=== PATIENT | male | born 1975 | race Caucasian/White ===

== ENCOUNTER 2016-12-15 14:53 | Inpatient (IN) | payer OTHER ==
[2016-12-15] MEDS ORDERED: Piperacillin/Tazobact 3.375 gm 100 ML IV STA (15:24)
[2016-12-15] MEDS ORDERED: Sodium Chloride 0.9% 500 ML IV ONE (15:25)
--- NOTE | 2016-12-15 15:36 | C.PDOC ---
History Of Present Illness 41 yr old male w/o significant PMHx presents to the ER for evaluation of left elbow pain, swelling, redness gradually developed for the past 5 days. Patient admits he has been applying warm compresses and noticed some discharge since early today. Patient denies fever, chills, known trauma or injury to Left elbow , myalgia, arthralgia, sore throat, throat tightness, chest pain, SOB, cough, wheezing, abd. pain, N/V, denies weakness, sensory or vascular deficits to left arm. Ambulate to Ed for evaluation, not in any apparent distress. Time Seen by Provider: 12/15/16 15:19 Chief Complaint (Nursing): Abnormal Skin Integrity History Per: Patient History/Exam Limitations: no limitations Onset/Duration Of Symptoms: Days (5) Past Medical History Reviewed: Historical Data, Nursing Documentation, Vital Signs Vital Signs: Last Vital Signs Temp 98.6 F 12/15/16 14:59 Pulse 95 H 12/15/16 14:59 Resp 16 12/15/16 14:59 BP 162/93 H 12/15/16 14:59 Pulse Ox 97 12/15/16 17:43 Family History: States: No Known Family Hx - Social History Hx Tobacco Use: Yes Hx Alcohol Use: Yes Hx Substance Use: No - Immunization History Hx Tetanus Toxoid Vaccination: No Hx Influenza Vaccination: No Hx Pneumococcal Vaccination: No Review Of Systems Except As Marked, All Systems Reviewed And Found Negative. Constitutional: Negative for: Fever, Chills Cardiovascular: Negative for: Chest Pain Respiratory: Negative for: Shortness of Breath Musculoskeletal: Positive for: Other ((+) Left elbow pain, swelling and redness) . Negative for: Arm Pain, Back Pain Neurological: Negative for: Weakness, Numbness Physical Exam - Physical Exam Appears: Well, Non-toxic, No Acute Distress Skin: Warm, Dry, Other (Left Elbow : Diffuse erythema, mild edema, warmth over the left olecranon with central induration. No proximal streaking, no flactulance.) Head: Atraumatic, Normacephalic Eye(s): bilateral: PERRL Nose: No Flaring, No Discharge Oral Mucosa: Moist Throat: Normal, No Erythema, No Exudate, No Drooling Neck: Supple Chest: Symmetrical, No Tenderness Cardiovascular: Rhythm Regular, No Murmur Respiratory: No Decreased Breath Sounds, No Accessory Muscle Use, No Rales, No Rhonchi, No Stridor, No Wheezing Gastrointestinal/Abdominal: Soft, No Tenderness, No Organomegaly, No Distention , No Guarding Back: No CVA Tenderness Extremity: Normal ROM (FAROM of LUE without difficulty.), Tenderness (mild tenderness left elbow olecranon ( see skin exam)), Capillary Refill (less than 2sec to Left hand), No Deformity (Left elbow), Other (no neurovascular deficist distally to left elbow.) Neurological/Psych: Oriented x3, Normal Motor, Normal Sensation, Normal Reflexes ED Course And Treatment - Laboratory Results Result Diagrams: 12/15/16 15:51 12/15/16 15:51 Lab Interpretation: Abnormal O2 Sat by Pulse Oximetry: 97 Pulse Ox Interpretation: Normal - Other Rad Left elbow X-Ray: Interpreted by Me, Viewed By Me Interpretation: no acute fx,dislocation, no evidence of osteo Progress Note: On re-eavluation, pt remained unchanged. case discussed with ED attenidng, diagnostics and imaging review, leukocytosis with left shift noted. Blood Cx- pending. Admission recommend at this time with Dx: left elbow celluliits r/o septic joint. results review and discussed with pt, agrees with plan. Case discussed with Hospitalist and admission accepted. case discussed with [id number] , per Hospitalist request , and consult arranged. 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 - Scribe Statement The provider has reviewed the documentation as recorded by the Scribe Sherry Wilson All medical record entries made by the Scribrogelio were at my direction and personally dictated by me. I have reviewed the chart and agree that the record accurately reflects my personal performance of the history, physical exam, medical decision making, and the department course for this patient. I have also personally directed, reviewed, and agree with the discharge instructions and disposition.
[2016-12-15 16:00] LABS: BASO # 0.1 K/uL (0.0-0.2); BASO % 0.8 % (0.0-2.0); EOS # 0.2 K/uL (0.0-0.7); EOS % 1.1 % (0.0-4.0); HEMATOCRIT 42.7 % (35.0-51.0); LYMPH # 1.8 K/uL (1.0-4.3); LYMPH % 11.6 % (20.0-40.0); MEAN CELL VOLUME 92.3 fL (80.0-94.0); MEAN CORPUSCULAR HEMOGLOBIN 30.4 pg (27.0-31.0); MEAN CORPUSCULAR HGB CONC 32.9 g/dL (33.0-37.0); MEAN PLATELET VOLUME 8.5 fL (7.2-11.7); MONO # 1.3 K/uL (0.0-0.8); MONO % 8.5 % (0.0-10.0); RED CELL DISTRIBUTION WIDTH 14.4 % (11.5-14.5); WHITE BLOOD COUNT 15.2 K/uL (4.8-10.8)
[2016-12-15 16:05] LABS: CHLORIDE 99 mmol/L (98-107); POTASSIUM 4.1 mmol/L (3.6-5.2); SODIUM 138 mmol/L (132-148)
[2016-12-15 16:07] LABS: BLOOD UREA NITROGEN 12 mg/dL (9-20); CARBON DIOXIDE 27 mmol/L (22-30); GFR AFRICAN-AMERICAN > 60; GLUCOSE,RANDOM 86 mg/dL (75-110)
[2016-12-15 16:08] LABS: CALCIUM 9.2 mg/dl (8.6-10.4)
[2016-12-15] MEDS ORDERED: Sodium Chloride 0.9% 1,000 ML ONE (16:23)
--- NOTE | 2016-12-15 16:43 | RAD ---
PROCEDURE: Radiographs of the left elbow. HISTORY: pain COMPARISON: No prior. FINDINGS: BONES: Normal. No fracture. JOINTS: Normal. No osteoarthritis. SOFT TISSUES: Normal. JOINT EFFUSION: None. OTHER FINDINGS: None IMPRESSION: Unremarkable radiographs of the left elbow.
[2016-12-15 17:21] LABS: RBC URINE 3 /hpf (0-3); URINE BACTERIA RARE (<OCC); URINE BILIRUBIN NEGATIVE (NEGATIVE); URINE BLOOD NEGATIVE (NEGATIVE); URINE COLOR Yellow (YELLOW); URINE GLUCOSE (UA) NORMAL (Normal); URINE KETONE TRACE mg/dL (NEGATIVE); URINE LEUKOCYTE ESTERASE NEG Leu/uL (Negative); URINE PROTEIN 1+ mg/dL (NEGATIVE); URINE UROBILINOGEN NORMAL mg/dL (0.2-1.0); WBC URINE < 1 /hpf (0-5)
--- NOTE | 2016-12-15 19:28 | CP.PCM.HP ---
<Ilene Galindo - Last Filed: 12/15/16 19:23> History of Present Illness - History of Present Illness History of Present Illness: CC - "Elbow pain" HPI - 41 year old male with no past medical history presents to the ED today complaining of L elbow pain. He states he noticed a "pimple" on his left elbow on Sunday. He denies trauma to the elbow or bug bites. He reports that on Sunday night he squeezed the "pimple" and pus came out. He states that he has pain in the elbow and it was very red and swollen down his arm but that this has improved since then. He reports having full ROM in his elbow. He stated that he took some of his mother's percocet to relived the pain and was applying hot compresses to the area. He came in today because it was not better. He denies pain in any other area of joint. He denies fever/chills or any other complaint. PMHx - denies Meds - none Allergies - NKDA Surg - denies FamHx - noncontributory Social - smokes a few cigarettes a day for many years, social alcohol use, denies drug use. Works at [employer] in [employer]. Present on Admission - Present on Admission Any Indicators Present on Admission: No Review of Systems - Constitutional Constitutional: absent: Chills, Fever, Headache, Weakness - Cardiovascular Cardiovascular: absent: Chest Pain, Chest Pain at Rest, Palpitations, Pedal Edema - Respiratory Respiratory: absent: Cough, Dyspnea, Dyspnea on Exertion - Gastrointestinal Gastrointestinal: absent: Abdominal Pain, Constipation, Diarrhea, Nausea, Vomiting - Genitourinary Genitourinary: absent: Change in Urinary Stream, Difficulty Urinating - Musculoskeletal Musculoskeletal: Joint Swelling Additional comments: L elbow pain and redness Past Patient History - Past Social History Smoking Status: SOMETIMES - PSYCHIATRIC Hx Substance Use: No - SURGICAL HISTORY Hx Orthopedic Surgery: Yes (RIGHT ANKLE) Meds Allergies/Adverse Reactions: Allergies Allergy/AdvReac Type Severity Reaction Status Date / Time shellfish derived Allergy Intermediate ITCHING Verified 12/15/16 21:00 Physical Exam - Constitutional Appears: Non-toxic, No Acute Distress - Head Exam Head Exam: ATRAUMATIC, NORMAL INSPECTION - Eye Exam Eye Exam: EOMI, PERRL Pupil Exam: NORMAL ACCOMODATION - ENT Exam ENT Exam: Mucous Membranes Moist - Respiratory Exam Respiratory Exam: Clear to Auscultation Bilateral, NORMAL BREATHING PATTERN. absent: Accessory Muscle Use, Wheezes, Respiratory Distress - Cardiovascular Exam Cardiovascular Exam: REGULAR RHYTHM, +S1, +S2 - GI/Abdominal Exam GI & Abdominal Exam: Normal Bowel Sounds, Soft. absent: Distended, Firm, Guarding, Tenderness - Extremities Exam Extremities exam: Positive for: normal inspection. Negative for: calf tenderness, pedal edema Additional comments: L elbow cellulitis erythema, swelling, warm to the touch, sensation intact, full ROM in elbow joint, joint not tender to palpation. - Back Exam Back exam: NORMAL INSPECTION. absent: CVA tenderness (L), CVA tenderness (R), paraspinal tenderness - Neurological Exam Neurological exam: Alert, CN II-XII Intact, Oriented x3 - Psychiatric Exam Psychiatric exam: Normal Affect, Normal Mood - Skin Skin Exam: Dry, Normal Color, Warm Additional comments: no rash Results - Vital Signs Recent Vital Signs: Last Vital Signs Temp 97.7 F 12/15/16 18:46 Pulse 86 12/15/16 18:46 Resp 16 12/15/16 18:46 BP 121/80 12/15/16 18:46 Pulse Ox 97 12/15/16 18:46 - Labs Result Diagrams: 12/15/16 15:51 12/15/16 15:51 Assessment & Plan - Assessment and Plan (Free Text) Assessment: Cellulitis L elbow rule out septic joint Orthopedics consulted, help appreciated - Dr. Clay - follow up recs WBC = 15.2, no bandemia Afebrile Clindamycin 300mg IVPB Q6 hours Given one dose of Zosyn/Vanc in the ED SoluMedrol 125mg IVP given in ED Toradol 30mg IVP Q6 prn pain lyme negative f/u blood culture f/u am labs, esr,crp Prophylaxis Regular diet SCDs Pepcid 20mg PO BID <John Disla - Last Filed: 12/16/16 14:44> Results - Vital Signs Recent Vital Signs: Last Vital Signs Temp 97.0 F L 12/16/16 08:52 Pulse 71 12/16/16 08:52 Resp 20 12/16/16 08:52 BP 134/76 12/16/16 08:52 Pulse Ox 98 12/16/16 08:52 - Labs Result Diagrams: 12/16/16 11:28 12/16/16 11:28 Labs: Laboratory Results - last 24 hr 12/16/16 12/16/16 11:28 11:28 WBC 20.2 H RBC 4.33 L Hgb 13.3 Hct 40.2 MCV 92.9 MCH 30.7 MCHC 33.0 RDW 14.5 Plt Count 309 MPV 8.4 Sodium 138 Potassium 4.1 Chloride 102 Carbon Dioxide 25 Anion Gap 15 BUN 19 Creatinine 0.9 Est GFR ( Amer) > 60 Est GFR (Non-Af Amer) > 60 Random Glucose 131 H Calcium 8.9 Total Bilirubin 0.5 AST 20 ALT 15 L Alkaline Phosphatase 66 Total Protein 7.2 Albumin 3.8 Globulin 3.4 Albumin/Globulin Ratio 1.1 Attending/Attestation - Attestation I have personally seen and examined this patient.: Yes I have fully participated in the care of the patient.: Yes I have reviewed all pertinent clinical information: Yes Notes (Text): 12/16/16 14:44 Patient was seen and examined at bedside with the resident Orthopedic evaluation has been requested. We will start the patient on IV antibiotics Clinically does not seem to be septic arthritis. However will obtain further imaging studies if needed. We will follow up orthopedic recommendations I discussed the plan of care with the resident and I agree with the above history and physical and assessment/plan by the resident.
[2016-12-15] MEDS: Clindamycin 300 MG in Sodium Chloride 0.9% 50 ML IVPB SCH (21:21)
[2016-12-15 23:30] VITALS: RESP 20
[2016-12-16] MEDS: Clindamycin 300 MG in Sodium Chloride 0.9% 50 ML IVPB SCH ×3 (02:15→12:57)
[2016-12-16 11:33] LABS: HEMATOCRIT 40.2 % (35.0-51.0); MEAN CELL VOLUME 92.9 fL (80.0-94.0); MEAN CORPUSCULAR HEMOGLOBIN 30.7 pg (27.0-31.0); MEAN PLATELET VOLUME 8.4 fL (7.2-11.7); RED CELL DISTRIBUTION WIDTH 14.5 % (11.5-14.5); WHITE BLOOD COUNT 20.2 K/uL (4.8-10.8)
[2016-12-16 11:52] LABS: CHLORIDE 102 mmol/L (98-107); POTASSIUM 4.1 mmol/L (3.6-5.2); SODIUM 138 mmol/L (132-148)
[2016-12-16 11:55] LABS: ALB/GLOB RATIO 1.1 (1.0-2.1); AST/SGOT 20 U/L (17-59); BILIRUBIN,TOTAL 0.5 mg/dL (0.2-1.3); BLOOD UREA NITROGEN 19 mg/dL (9-20); CARBON DIOXIDE 25 mmol/L (22-30); GFR AFRICAN-AMERICAN > 60; TOTAL PROTEIN 7.2 g/dL (6.3-8.3)
[2016-12-16 11:56] LABS: ALKALINE PHOSPHATASE 66 U/L (38-126); ALT/SGPT 15 U/L (21-72); CALCIUM 8.9 mg/dl (8.6-10.4); GLUCOSE,RANDOM 131 mg/dL (75-110)
--- NOTE | 2016-12-16 13:45 | CP.PCM.PN ---
<Reyna Llanos - Last Filed: 12/16/16 19:34> Subjective - Date & Time of Evaluation Date of Evaluation: 12/16/16 Time of Evaluation: 09:00 - Subjective Subjective: Medicine Progress Note- Dr. Disla's service: Patient seen and examined at bedside this AM. Patient admits to left elbow swelling. Denies pain in the area this AM. He has full ROM. Denies fevers, chills, nausea, vomiting. No acute events overnight. Objective - Vital Signs/Intake and Output Vital Signs (last 24 hours): Temp Pulse Resp BP Pulse Ox 97.0 F L 71 20 134/76 98 12/16/16 08:52 12/16/16 08:52 12/16/16 08:52 12/16/16 08:52 12/16/16 08:52 Intake and Output: 12/16/16 12/16/16 06:59 18:59 Intake Total 1050 Balance 1050 - Medications Medications: Current Medications Acetaminophen (Tylenol 325mg Tab) 650 mg PO Q6 PRN PRN Reason: Fever >100.4 F Famotidine (Pepcid) 20 mg PO BID [facility] Last Admin: 12/16/16 10:48 Dose: 20 mg Clindamycin Phosphate 300 mg/ (Sodium Chloride) 52 mls @ 100 mls/hr IVPB Q6H [facility] Last Admin: 12/16/16 12:57 Dose: 100 mls/hr Ketorolac Tromethamine (Toradol) 30 mg IV Q6 PRN PRN Reason: Pain, moderate (4-7) Last Admin: 12/16/16 13:19 Dose: 30 mg Pneumococcal Polyvalent Vaccine (Pneumovax 23 Vaccine) 0.5 ml IM .ONCE ONE Stop: 12/17/16 10:01 - Labs Labs: 12/16/16 11:28 12/16/16 11:28 - Constitutional Appears: No Acute Distress - Head Exam Head Exam: NORMAL INSPECTION, NORMOCEPHALIC - Eye Exam Eye Exam: EOMI, Normal appearance - ENT Exam ENT Exam: Mucous Membranes Moist - Neck Exam Neck Exam: Full ROM, Normal Inspection - Respiratory Exam Respiratory Exam: Clear to Ausculation Bilateral, NORMAL BREATHING PATTERN - Cardiovascular Exam Cardiovascular Exam: REGULAR RHYTHM, +S1, +S2 - GI/Abdominal Exam GI & Abdominal Exam: Soft. absent: Distended, Tenderness - Extremities Exam Extremities Exam: Full ROM, Normal Inspection (right arm) Additional comments: Left arm: Elbow erythematous, with lesion, non draining, non tender, swollen and fluctuance - Neurological Exam Neurological Exam: Alert, Awake, Oriented x3 - Psychiatric Exam Psychiatric exam: Normal Affect, Normal Mood - Skin Skin Exam: Normal Color, Warm Assessment and Plan - Assessment and Plan (Free Text) Assessment: Cellulitis L elbow WBC increased to 20.2 this AM. Afebrile. Rule out septic joint Orthopedics consulted, help appreciated - Dr. Clay - follow up recs SoluMedrol 125mg IVP given in ED * DC Clindamycin 300mg IVPB Q6 hours * Start Vanco 1 gm IVPB Q14H * Start Zosyn 3.375 mg IVPB Q6H * Toradol 30mg IVP Q6 prn pain lyme negative f/u blood culture f/u MRI of left elbow f/u am labs, esr,crp Prophylactic Measure Regular diet SCDs Lovenox 40 mg SC daily Pepcid 20mg PO BID <John Disla - Last Filed: 12/17/16 08:34> Objective - Vital Signs/Intake and Output Vital Signs (last 24 hours): Temp Pulse Resp BP Pulse Ox 98.1 F 75 20 105/58 L 99 12/17/16 00:00 12/17/16 00:00 12/17/16 00:00 12/17/16 00:00 12/17/16 00:00 Intake and Output: 12/17/16 12/17/16 06:59 18:59 Intake Total 1100 Balance 1100 - Medications Medications: Current Medications Acetaminophen (Tylenol 325mg Tab) 650 mg PO Q6 PRN PRN Reason: Fever >100.4 F Enoxaparin Sodium (Lovenox) 40 mg SC DAILY [facility] Famotidine (Pepcid) 20 mg PO BID [facility] Last Admin: 12/16/16 18:00 Dose: 20 mg Piperacillin Sod/Tazobactam (Sod 3.375 gm/ Sodium Chloride) 100 mls @ 200 mls/ hr IVPB Q6H [facility] Last Admin: 12/17/16 05:40 Dose: 200 mls/hr Vancomycin/Sodium Chloride (Vancocin) 1 gm in 200 mls @ 133.333 mls/hr IVPB Q24H [facility] Stop: 06/01/17 16:01 Last Admin: 12/16/16 16:50 Dose: 133.333 mls/hr Ketorolac Tromethamine (Toradol) 30 mg IV Q6 PRN PRN Reason: Pain, moderate (4-7) Last Admin: 12/16/16 21:28 Dose: 30 mg Pneumococcal Polyvalent Vaccine (Pneumovax 23 Vaccine) 0.5 ml IM .ONCE ONE Stop: 12/17/16 10:01 - Labs Labs: 12/17/16 07:13 12/17/16 07:13 Attending/Attestation - Attestation I have personally seen and examined this patient.: Yes I have fully participated in the care of the patient.: Yes I have reviewed all pertinent clinical information, including history, physical exam and plan: Yes Notes (Text): 12/17/16 08:34 Patient was seen and examined at bedside we will change the antibiotics to Zosyn and Vancomycin Follow up MRI report I reviewed the chart, labs, imaging studies, and I discussed the plan of care with the resident and I agree with above history and physical and assessment/ plan by the resident.
[2016-12-16] MEDS: Vancomycin 1 gm/NS 200 ml 1 GM/200 ML BAG IVPB SCH (16:50)
[2016-12-16] MEDS: Piperacillin/Tazobact 3.375 GM in Sodium Chloride 100 ML IVPB SCH ×2 (17:50→22:37)
--- NOTE | 2016-12-16 21:57 | CON ---
DATE: 12/16/2016 REASON FOR CONSULTATION: Left elbow pain, rule out septic joint. HISTORY OF PRESENT ILLNESS: A 41-year-old male with no past medical history who presented to the Emergency Room with the complaint of left elbow pain over the past couple of days. The patient first noticed a pimple on the back of his elbow, which he had drained some pus and caused erythema and pain over the elbow and forearm. He was seen in the Emergency Room and admitted to the medical floor for IV antibiotics. I was consulted for evaluation of the elbow. The patient has now been having antibiotics for the past 24 hours. He states his symptoms have markedly improved. He denies pain with range of motion of the elbow. He denies pain in any other joints. PHYSICAL EXAMINATION: Left elbow, there is mild swelling and erythema over the olecranon bursa. Mild tenderness to palpation and warmth. Elbow has full range of motion, painless, from 0-130 degrees flexion, full supination and pronation. No instability. The forearm is soft and compressible. Erythema is resolving. ASSESSMENT: Left elbow olecranon bursitis. PLAN: I discussed the above findings with the patient. There is a low suspicion for septic joint. The patient's main symptoms and pain is localized to the olecranon bursa. I recommend continued IV antibiotics, warm compresses and observation. The patient can follow up with me in my office for further recommendations. No surgical intervention needed at this time. Michele Morley M.D. cc: [id number] TT: 12/16/2016 21:57:10 Confirmation # [id number] Dictation # [id number] [email or web address] [email or web address]
[2016-12-17] MEDS: Piperacillin/Tazobact 3.375 GM in Sodium Chloride 100 ML IVPB SCH ×4 (05:40→22:05)
[2016-12-17 07:19] LABS: BASO # 0.1 K/uL (0.0-0.2); EOS # 0.2 K/uL (0.0-0.7); EOS % 1.4 % (0.0-4.0); HEMATOCRIT 40.9 % (35.0-51.0); LYMPH # 3.1 K/uL (1.0-4.3); MEAN CELL VOLUME 93.6 fL (80.0-94.0); MEAN CORPUSCULAR HEMOGLOBIN 30.5 pg (27.0-31.0); MEAN CORPUSCULAR HGB CONC 32.6 g/dL (33.0-37.0); MEAN PLATELET VOLUME 8.4 fL (7.2-11.7); MONO # 1.2 K/uL (0.0-0.8); MONO % 9.1 % (0.0-10.0); RED CELL DISTRIBUTION WIDTH 14.6 % (11.5-14.5); WHITE BLOOD COUNT 13.3 K/uL (4.8-10.8)
[2016-12-17 07:48] LABS: CHLORIDE 106 mmol/L (98-107)
[2016-12-17 07:49] LABS: POTASSIUM 4.1 mmol/L (3.6-5.2); SODIUM 137 mmol/L (132-148)
[2016-12-17 07:51] LABS: ALKALINE PHOSPHATASE 51 U/L (38-126); AST/SGOT 23 U/L (17-59); BILIRUBIN,TOTAL 0.4 mg/dL (0.2-1.3); BLOOD UREA NITROGEN 17 mg/dL (9-20); CARBON DIOXIDE 23 mmol/L (22-30); GFR AFRICAN-AMERICAN > 60; GLUCOSE,RANDOM 97 mg/dL (75-110); TOTAL PROTEIN 6.1 g/dL (6.3-8.3)
[2016-12-17 07:52] LABS: ALT/SGPT 25 U/L (21-72); CALCIUM 7.9 mg/dl (8.6-10.4)
[2016-12-17] MEDS: Enoxaparin 40 mg Syringe SC SCH (09:29)
--- NOTE | 2016-12-17 09:33 | CP.PCM.PN ---
Addendum entered and electronically signed by Reyna Llanos DO 12/17/16 13: 17: f/u wound culture collected today Original Note: <Reyna Llanos - Last Filed: 12/17/16 12:41> Subjective - Date & Time of Evaluation Date of Evaluation: 12/17/16 Time of Evaluation: 08:00 - Subjective Subjective: Medicine Progress Note- Dr. Disla's Service: Patient seen and examined at bedside this Am. Patient reports left elbow started draining purulent pus today. Elbow is not tender. Denies fevers, chills. No acute events overnight. Patient is ambulating with no issues. Objective - Vital Signs/Intake and Output Vital Signs (last 24 hours): Temp Pulse Resp BP Pulse Ox 97.7 F 60 20 105/67 99 12/17/16 08:00 12/17/16 08:00 12/17/16 08:00 12/17/16 08:00 12/17/16 08:00 Intake and Output: 12/17/16 12/17/16 06:59 18:59 Intake Total 1100 Balance 1100 - Medications Medications: Current Medications Acetaminophen (Tylenol 325mg Tab) 650 mg PO Q6 PRN PRN Reason: Fever >100.4 F Enoxaparin Sodium (Lovenox) 40 mg SC DAILY [facility] Last Admin: 12/17/16 09:29 Dose: 40 mg Famotidine (Pepcid) 20 mg PO BID [facility] Last Admin: 12/17/16 09:29 Dose: 20 mg Piperacillin Sod/Tazobactam (Sod 3.375 gm/ Sodium Chloride) 100 mls @ 200 mls/ hr IVPB Q6H [facility] Last Admin: 12/17/16 05:40 Dose: 200 mls/hr Vancomycin/Sodium Chloride (Vancocin) 1 gm in 200 mls @ 133.333 mls/hr IVPB Q24H [facility] Stop: 12/21/16 16:01 Last Admin: 12/16/16 16:50 Dose: 133.333 mls/hr Ketorolac Tromethamine (Toradol) 30 mg IV Q6 PRN PRN Reason: Pain, moderate (4-7) Last Admin: 12/16/16 21:28 Dose: 30 mg Pneumococcal Polyvalent Vaccine (Pneumovax 23 Vaccine) 0.5 ml IM .ONCE ONE Stop: 12/17/16 10:01 Last Admin: 12/17/16 09:30 Dose: Not Given - Labs Labs: 12/17/16 07:13 12/17/16 07:13 - Constitutional Appears: No Acute Distress - Head Exam Head Exam: NORMAL INSPECTION, NORMOCEPHALIC - Eye Exam Eye Exam: EOMI, Normal appearance - ENT Exam ENT Exam: Mucous Membranes Moist - Neck Exam Neck Exam: Full ROM, Normal Inspection - Respiratory Exam Respiratory Exam: Clear to Ausculation Bilateral, NORMAL BREATHING PATTERN - Cardiovascular Exam Cardiovascular Exam: REGULAR RHYTHM, +S1, +S2 - GI/Abdominal Exam GI & Abdominal Exam: Soft. absent: Distended, Tenderness - Extremities Exam Extremities Exam: Full ROM, Normal Inspection - Back Exam Back Exam: NORMAL INSPECTION - Neurological Exam Neurological Exam: Alert, Awake, Oriented x3 - Psychiatric Exam Psychiatric exam: Normal Affect, Normal Mood - Skin Skin Exam: Normal Color, Warm Assessment and Plan - Assessment and Plan (Free Text) Assessment: Cellulitis L elbow WBC improved to 13.3 today from 20.2 yesterday. Afebrile. Orthopedics consulted, help appreciated - Dr. Clay - no surgery at this time. Surgery consult- Dr. Naylor for I&D. Resident notified. SoluMedrol 125mg IVP given in ED * Continue Vanco 1 gm IVPB Q14H- DAY 2 * Continue Zosyn 3.375 mg IVPB Q6H- DAY 2 * Toradol 30mg IVP Q6 prn pain lyme negative f/u blood culture- negative X 24 hrs f/u MRI of left elbow-done, report pending. ESR normal. CRP elevated at 14.70 Prophylactic Measure Regular diet SCDs Lovenox 40 mg SC daily Pepcid 20mg PO BID <John Disla - Last Filed: 12/17/16 14:11> Objective - Vital Signs/Intake and Output Vital Signs (last 24 hours): Temp Pulse Resp BP Pulse Ox 97.7 F 60 20 105/67 99 12/17/16 08:00 12/17/16 08:00 12/17/16 08:00 12/17/16 08:00 12/17/16 08:00 Intake and Output: 12/17/16 12/17/16 06:59 18:59 Intake Total 1100 Balance 1100 - Medications Medications: Current Medications Acetaminophen (Tylenol 325mg Tab) 650 mg PO Q6 PRN PRN Reason: Fever >100.4 F Enoxaparin Sodium (Lovenox) 40 mg SC DAILY [facility] Last Admin: 12/17/16 09:29 Dose: 40 mg Famotidine (Pepcid) 20 mg PO BID [facility] Last Admin: 12/17/16 09:29 Dose: 20 mg Piperacillin Sod/Tazobactam (Sod 3.375 gm/ Sodium Chloride) 100 mls @ 200 mls/ hr IVPB Q6H [facility] Last Admin: 12/17/16 10:49 Dose: 200 mls/hr Vancomycin/Sodium Chloride (Vancocin) 1 gm in 200 mls @ 133.333 mls/hr IVPB Q24H [facility] Stop: 12/21/16 16:01 Last Admin: 12/16/16 16:50 Dose: 133.333 mls/hr Ketorolac Tromethamine (Toradol) 30 mg IV Q6 PRN PRN Reason: Pain, moderate (4-7) Last Admin: 12/16/16 21:28 Dose: 30 mg Lidocaine/Epinephrine (Lidocaine 1%/Epinephrine [id number] 30 Ml) 30 ml IJ ONCE ONE Stop: 12/17/16 14:07 - Labs Labs: 12/17/16 07:13 12/17/16 07:13 Attending/Attestation - Attestation I have personally seen and examined this patient.: Yes I have fully participated in the care of the patient.: Yes I have reviewed all pertinent clinical information, including history, physical exam and plan: Yes Notes (Text): 12/17/16 14:09 Patient was seen and examined at bedside. Follow up wound cultures Continue IV antibiotics [facility] I & D by surgery I reviewed the chart, labs imaging studies and medical cost consultant notes. I agree with above history and physical and assessment/plan by the resident.
[2016-12-17] MEDS ORDERED: Pneumococcal 23-Valent Vaccine IM ONE (10:00)
--- NOTE | 2016-12-17 12:15 | CP.PCM.CON ---
<Mir Suggs - Last Filed: 12/17/16 14:10> History of Present Illness - History of Present Illness History of Present Illness: SURGERY CONSULT NOTE FOR DR. NAYLOR 41M presents with left elbow abscess that began spontaneously draining pus this morning. Patient denies fevers and chills. Does not know what may have caused the abscess. He denies any pain in the elbow, states he is able to move the arm and has no problems. PMH: denies PSH: denies Social: denies tobacco, alcohol, and illicit drugs Allergies: shellfish Past Patient History - Past Medical History & Family History Past Medical History?: No - Past Social History Smoking Status: SOMETIMES - MUSCULOSKELETAL/RHEUMATOLOGICAL Hx Falls: No - PSYCHIATRIC Hx Substance Use: No - SURGICAL HISTORY Hx Orthopedic Surgery: Yes (RIGHT ANKLE) - ANESTHESIA Hx Anesthesia: Yes Hx Anesthesia Reactions: No Hx Malignant Hyperthermia: No Has any member of the family had a problem w/ anesthesia?: No Meds Allergies/Adverse Reactions: Allergies Allergy/AdvReac Type Severity Reaction Status Date / Time shellfish derived Allergy Intermediate ITCHING Verified 12/15/16 21:00 - Medications Medications: Current Medications Acetaminophen (Tylenol 325mg Tab) 650 mg PO Q6 PRN PRN Reason: Fever >100.4 F Enoxaparin Sodium (Lovenox) 40 mg SC DAILY [facility] Last Admin: 12/17/16 09:29 Dose: 40 mg Famotidine (Pepcid) 20 mg PO BID [facility] Last Admin: 12/17/16 09:29 Dose: 20 mg Piperacillin Sod/Tazobactam (Sod 3.375 gm/ Sodium Chloride) 100 mls @ 200 mls/ hr IVPB Q6H [facility] Last Admin: 12/17/16 10:49 Dose: 200 mls/hr Vancomycin/Sodium Chloride (Vancocin) 1 gm in 200 mls @ 133.333 mls/hr IVPB Q24H [facility] Stop: 12/21/16 16:01 Last Admin: 12/16/16 16:50 Dose: 133.333 mls/hr Ketorolac Tromethamine (Toradol) 30 mg IV Q6 PRN PRN Reason: Pain, moderate (4-7) Last Admin: 12/16/16 21:28 Dose: 30 mg Physical Exam - Constitutional Appears: Non-toxic, No Acute Distress - Head Exam Head Exam: ATRAUMATIC - Eye Exam Eye Exam: EOMI, PERRL - ENT Exam ENT Exam: Mucous Membranes Moist - Respiratory Exam Respiratory Exam: Clear to Auscultation Bilateral, NORMAL BREATHING PATTERN - Cardiovascular Exam Cardiovascular Exam: REGULAR RHYTHM, +S1, +S2 - GI/Abdominal Exam GI & Abdominal Exam: Soft. absent: Distended, Firm, Guarding, Rebound, Rigid, Tenderness - Extremities Exam Additional comments: left elbow abscess, draining pus, erythema, no pain on flexion and extension, Full range of motion of the left elbow - Neurological Exam Neurological exam: Alert, Oriented x3 - Psychiatric Exam Psychiatric exam: Normal Affect, Normal Mood - Skin Skin Exam: Dry, Intact, Normal Color, Warm Results - Vital Signs Recent Vital Signs: Last Vital Signs Temp 97.7 F 12/17/16 08:00 Pulse 60 12/17/16 08:00 Resp 20 12/17/16 08:00 BP 105/67 12/17/16 08:00 Pulse Ox 99 12/17/16 08:00 - Labs Result Diagrams: 12/17/16 07:13 12/17/16 07:13 Labs: Laboratory Results - last 24 hr 12/17/16 12/17/16 12/17/16 07:13 07:13 07:13 WBC 13.3 H RBC 4.37 L Hgb 13.4 Hct 40.9 MCV 93.6 MCH 30.5 MCHC 32.6 L RDW 14.6 H Plt Count 318 MPV 8.4 Neut % (Auto) 65.5 Lymph % (Auto) 23.0 [place] % (Auto) 9.1 Eos % (Auto) 1.4 Baso % (Auto) 1.0 Neut # 8.7 H Lymph # 3.1 [place] # 1.2 H Eos # 0.2 Baso # 0.1 ESR 8 Sodium 137 Potassium 4.1 Chloride 106 Carbon Dioxide 23 Anion Gap 13 BUN 17 Creatinine 0.9 Est GFR ( Amer) > 60 Est GFR (Non-Af Amer) > 60 Random Glucose 97 Calcium 7.9 L Magnesium 2.0 Total Bilirubin 0.4 AST 23 ALT 25 Alkaline Phosphatase 51 C-React Prot High Sens 14.70 H Total Protein 6.1 L Albumin 3.1 L Globulin 3.1 Albumin/Globulin Ratio 1.0 Assessment & Plan - Assessment and Plan (Free Text) Assessment: 41M with left elbow abscess, mild spontaneous drainage - I&D bedside - f/u culture - continue antibiotics - pain management Discussed with Dr. Cyndy Suggs, PGY1 <Bruno Naylor - Last Filed: 12/18/16 18:50> Meds - Medications Medications: Current Medications Acetaminophen (Tylenol 325mg Tab) 650 mg PO Q6 PRN PRN Reason: Fever >100.4 F Enoxaparin Sodium (Lovenox) 40 mg SC DAILY [facility] Last Admin: 12/18/16 11:00 Dose: 40 mg Famotidine (Pepcid) 20 mg PO BID [facility] Last Admin: 12/18/16 18:01 Dose: 20 mg Piperacillin Sod/Tazobactam (Sod 3.375 gm/ Sodium Chloride) 100 mls @ 200 mls/ hr IVPB Q6H [facility] Last Admin: 12/18/16 18:02 Dose: 200 mls/hr Vancomycin/Sodium Chloride (Vancocin) 1 gm in 200 mls @ 133.333 mls/hr IVPB Q24H [facility] Stop: 12/21/16 16:01 Last Admin: 12/18/16 18:01 Dose: 133.333 mls/hr Results - Vital Signs Recent Vital Signs: Last Vital Signs Temp 98.0 F 12/18/16 15:00 Pulse 51 L 12/18/16 15:00 Resp 20 12/18/16 15:00 BP 127/64 12/18/16 15:00 Pulse Ox 96 12/18/16 15:00 - Labs Result Diagrams: 12/18/16 06:11 12/18/16 06:11 Labs: Laboratory Results - last 24 hr 12/18/16 12/18/16 06:11 06:11 WBC 11.1 H RBC 4.53 Hgb 13.9 Hct 42.0 MCV 92.8 MCH 30.6 MCHC 33.0 RDW 14.4 Plt Count 364 MPV 8.6 Neut % (Auto) 60.7 Lymph % (Auto) 26.6 [place] % (Auto) 9.1 Eos % (Auto) 2.8 Baso % (Auto) 0.8 Neut # 6.7 Lymph # 3.0 [place] # 1.0 H Eos # 0.3 Baso # 0.1 Sodium 136 Potassium 4.2 Chloride 101 Carbon Dioxide 26 Anion Gap 13 BUN 13 Creatinine 0.9 Est GFR ( Amer) > 60 Est GFR (Non-Af Amer) > 60 Random Glucose 92 Calcium 8.3 L Magnesium 2.0 Total Bilirubin 0.4 AST 23 ALT 24 Alkaline Phosphatase 51 Total Protein 6.2 L Albumin 3.2 L Globulin 3.0 Albumin/Globulin Ratio 1.1 Attending/Attestation - Attestation I have personally seen and examined this patient.: Yes I have fully participated in the care of the patient.: Yes I have reviewed all pertinent clinical information: Yes Notes (Text): 12/18/16 18:45 Pt was seen and examined at bedside on 12/17/16 Agree with above note and assessment Pt with Left Elbow Cellulitis and abscess I & D at bedside Consent Plan d.w pt in detail. CLexisw Current mx
[2016-12-17] MEDS ORDERED: Lidocaine 2% w Epi 1:100,000 Inj IJ ONE (14:06)
[2016-12-17] MEDS: Vancomycin 1 gm/NS 200 ml 1 GM/200 ML BAG IVPB SCH (16:25)
--- NOTE | 2016-12-18 04:27 | CP.PCM.PN ---
<DonavonMp hannahic - Last Filed: 12/18/16 04:25> Subjective - Date & Time of Evaluation Date of Evaluation: 12/18/16 Time of Evaluation: 04:25 - Subjective Subjective: PGY-1 Progress Note Patient seen and examined at bedside this early AM. Patient s/p I&D at bedside last night. Pt reports elbow pain is well-controlled on pain regimen. Denies fevers, chills. No acute events overnight. Patient is tolerating diet, urinating , and moving bowels w/o issue. Objective - Vital Signs/Intake and Output Vital Signs (last 24 hours): Temp Pulse Resp BP Pulse Ox 97.3 F L 70 20 110/13 L 96 12/18/16 00:00 12/18/16 00:00 12/18/16 00:00 12/18/16 00:00 12/18/16 00:00 Intake and Output: 12/17/16 12/18/16 18:59 06:59 Intake Total 500 600 Balance 500 600 - Medications Medications: Current Medications Acetaminophen (Tylenol 325mg Tab) 650 mg PO Q6 PRN PRN Reason: Fever >100.4 F Enoxaparin Sodium (Lovenox) [address] [facility] Last Admin: 12/17/16 09:29 Dose: 40 mg Famotidine (Pepcid) [address] [facility] Last Admin: 12/17/16 17:15 Dose: 20 mg Piperacillin Sod/Tazobactam (Sod 3.375 gm/ Sodium Chloride) 100 mls @ 200 mls/ hr IVPB Q6H [facility] Last Admin: 12/17/16 22:05 Dose: 200 mls/hr Vancomycin/Sodium Chloride (Vancocin) 1 gm in 200 mls @ 133.333 mls/hr IVPB Q24H [facility] Stop: 12/21/16 16:01 Last Admin: 12/17/16 16:25 Dose: 133.333 mls/hr - Labs Labs: 12/17/16 07:13 12/17/16 07:13 - Constitutional Appears: Non-toxic, No Acute Distress - Head Exam Head Exam: ATRAUMATIC, NORMAL INSPECTION, NORMOCEPHALIC - Eye Exam Eye Exam: EOMI Pupil Exam: PERRL - ENT Exam ENT Exam: Mucous Membranes Moist - Respiratory Exam Respiratory Exam: Clear to Ausculation Bilateral, NORMAL BREATHING PATTERN - Cardiovascular Exam Cardiovascular Exam: REGULAR RHYTHM, +S1, +S2 - GI/Abdominal Exam GI & Abdominal Exam: Soft, Normal Bowel Sounds. absent: Tenderness - Extremities Exam Extremities Exam: absent: Tenderness Additional comments: bandage covering lt elbow that is freshly applied; c/d/i - Back Exam Back Exam: absent: CVA tenderness (L), CVA tenderness (R) - Neurological Exam Neurological Exam: Alert, Awake, Oriented x3 - Psychiatric Exam Psychiatric exam: Normal Affect, Normal Mood - Skin Skin Exam: Normal Color, Warm Assessment and Plan - Assessment and Plan (Free Text) Plan: Cellulitis L elbow S/p ID at bedside WBC improved yesterday to 13.3 from 20.2 yesterday. - pt remains afebrile. Orthopedics consulted, help appreciated - Dr. Clay - no surgery at this time. Surgery consult- Dr. Naylor for I&D. Resident notified. SoluMedrol 125mg IVP given in ED * Continue Vanco 1 gm IVPB Q14H- DAY 2 * Continue Zosyn 3.375 mg IVPB Q6H- DAY 2 * Toradol 30mg IVP Q6 prn pain lyme negative f/u blood culture- negative X 48 hrs f/u MRI of left elbow-done, report pending. ESR normal. CRP elevated at 14.70 Prophylactic Measure Regular diet SCDs Lovenox 40 mg SC daily Pepcid 20mg PO BID <Kofi Galvan - Last Filed: 12/18/16 12:48> Objective - Vital Signs/Intake and Output Vital Signs (last 24 hours): Temp Pulse Resp BP Pulse Ox 98.3 F 60 20 113/70 98 12/18/16 07:26 12/18/16 07:26 12/18/16 07:26 12/18/16 07:26 12/18/16 07:26 Intake and Output: 12/18/16 12/18/16 06:59 18:59 Intake Total 1000 Balance 1000 - Medications Medications: Current Medications Acetaminophen (Tylenol 325mg Tab) 650 mg PO Q6 PRN PRN Reason: Fever >100.4 F Enoxaparin Sodium (Lovenox) [address] [facility] Last Admin: 12/18/16 11:00 Dose: 40 mg Famotidine (Pepcid) [address] [facility] Last Admin: 12/18/16 10:59 Dose: 20 mg Piperacillin Sod/Tazobactam (Sod 3.375 gm/ Sodium Chloride) 100 mls @ 200 mls/ hr IVPB Q6H [facility] Last Admin: 12/18/16 10:58 Dose: 200 mls/hr Vancomycin/Sodium Chloride (Vancocin) 1 gm in 200 mls @ 133.333 mls/hr IVPB Q24H [facility] Stop: 12/21/16 16:01 Last Admin: 12/17/16 16:25 Dose: 133.333 mls/hr - Labs Labs: 12/18/16 06:11 12/18/16 06:11 Attending/Attestation - Attestation I have personally seen and examined this patient.: Yes I have fully participated in the care of the patient.: Yes I have reviewed all pertinent clinical information, including history, physical exam and plan: Yes Notes (Text): 12/18/16 12:45 Medical Attending: Patient was seen and examined by me. Agree with the above note by the resident. Patient had a bedside I and D yesterday The patient states that overall he feels well, the swelling of the elbow has decreased, also the WBC is decreased to 11 as well. He denied fevers and chills. Currently pending cultures - there is a preliminary gram positive, also pending the MRI of the elbow to be read thank you Kofi Galvan
[2016-12-18] MEDS: Piperacillin/Tazobact 3.375 GM in Sodium Chloride 100 ML IVPB SCH ×4 (05:35→22:20)
[2016-12-18 06:29] LABS: CHLORIDE 101 mmol/L (98-107)
[2016-12-18 06:30] LABS: POTASSIUM 4.2 mmol/L (3.6-5.2); SODIUM 136 mmol/L (132-148)
[2016-12-18 06:33] LABS: ALB/GLOB RATIO 1.1 (1.0-2.1); ALKALINE PHOSPHATASE 51 U/L (38-126); ALT/SGPT 24 U/L (21-72); AST/SGOT 23 U/L (17-59); BILIRUBIN,TOTAL 0.4 mg/dL (0.2-1.3); BLOOD UREA NITROGEN 13 mg/dL (9-20); CALCIUM 8.3 mg/dl (8.6-10.4); CARBON DIOXIDE 26 mmol/L (22-30); GFR AFRICAN-AMERICAN > 60; GLUCOSE,RANDOM 92 mg/dL (75-110); TOTAL PROTEIN 6.2 g/dL (6.3-8.3)
[2016-12-18 07:01] LABS: BASO # 0.1 K/uL (0.0-0.2); BASO % 0.8 % (0.0-2.0); EOS # 0.3 K/uL (0.0-0.7); EOS % 2.8 % (0.0-4.0); LYMPH % 26.6 % (20.0-40.0); MEAN CELL VOLUME 92.8 fL (80.0-94.0); MEAN CORPUSCULAR HEMOGLOBIN 30.6 pg (27.0-31.0); MEAN PLATELET VOLUME 8.6 fL (7.2-11.7); MONO % 9.1 % (0.0-10.0); RED CELL DISTRIBUTION WIDTH 14.4 % (11.5-14.5); WHITE BLOOD COUNT 11.1 K/uL (4.8-10.8)
[2016-12-18] MEDS: Enoxaparin 40 mg Syringe SC SCH (11:00)
--- NOTE | 2016-12-18 13:28 | CP.PCM.PN ---
<Halley Apodaca - Last Filed: 12/18/16 13:31> Subjective - Date & Time of Evaluation Date of Evaluation: 12/18/16 Time of Evaluation: 07:00 - Subjective Subjective: GENERAL SURGERY PROGRESS NOTE FOR DR. NAYLOR Patient seen and examined at bedside. Dressing changed. Packing removed. Objective - Vital Signs/Intake and Output Vital Signs (last 24 hours): Temp Pulse Resp BP Pulse Ox 98.3 F 60 20 113/70 98 12/18/16 07:26 12/18/16 07:26 12/18/16 07:26 12/18/16 07:26 12/18/16 07:26 Intake and Output: 12/18/16 12/18/16 06:59 18:59 Intake Total 1000 Balance 1000 - Medications Medications: Current Medications Acetaminophen (Tylenol 325mg Tab) 650 mg PO Q6 PRN PRN Reason: Fever >100.4 F Enoxaparin Sodium (Lovenox) 40 mg SC DAILY [facility] Last Admin: 12/18/16 11:00 Dose: 40 mg Famotidine (Pepcid) 20 mg PO BID [facility] Last Admin: 12/18/16 10:59 Dose: 20 mg Piperacillin Sod/Tazobactam (Sod 3.375 gm/ Sodium Chloride) 100 mls @ 200 mls/ hr IVPB Q6H [facility] Last Admin: 12/18/16 10:58 Dose: 200 mls/hr Vancomycin/Sodium Chloride (Vancocin) 1 gm in 200 mls @ 133.333 mls/hr IVPB Q24H [facility] Stop: 12/21/16 16:01 Last Admin: 12/17/16 16:25 Dose: 133.333 mls/hr - Labs Labs: 12/18/16 06:11 12/18/16 06:11 - Constitutional Appears: Non-toxic, No Acute Distress - Head Exam Head Exam: ATRAUMATIC, NORMAL INSPECTION - Eye Exam Eye Exam: EOMI, Normal appearance - Respiratory Exam Respiratory Exam: NORMAL BREATHING PATTERN. absent: Respiratory Distress - Cardiovascular Exam Cardiovascular Exam: +S1, +S2 - Extremities Exam Additional comments: Left elbow abscess with packing in place (removed) - Neurological Exam Neurological Exam: Alert, Awake - Psychiatric Exam Psychiatric exam: Normal Affect, Normal Mood Assessment and Plan - Assessment and Plan (Free Text) Assessment: 41yo M with left elbow abscess s/p bedside I&D - Afebrile, VSS - WBC 11.1 today (decreased from 13.3 yesterday) - Wound cx: gram + cocci - Packing removed - Pt may DC home w/ PO Antibiotics (Augmentin or Clindamycin) and follow up with PMD - Discussed plan with Dr. Cyndy Apodaca PGY-2 <Bruno Naylor - Last Filed: 12/18/16 19:26> Objective - Vital Signs/Intake and Output Vital Signs (last 24 hours): Temp Pulse Resp BP Pulse Ox 98.0 F 51 L 20 127/64 96 12/18/16 15:00 12/18/16 15:00 12/18/16 15:00 12/18/16 15:00 12/18/16 15:00 - Medications Medications: Current Medications Acetaminophen (Tylenol 325mg Tab) 650 mg PO Q6 PRN PRN Reason: Fever >100.4 F Enoxaparin Sodium (Lovenox) 40 mg SC DAILY [facility] Last Admin: 12/18/16 11:00 Dose: 40 mg Famotidine (Pepcid) 20 mg PO BID [facility] Last Admin: 12/18/16 18:01 Dose: 20 mg Piperacillin Sod/Tazobactam (Sod 3.375 gm/ Sodium Chloride) 100 mls @ 200 mls/ hr IVPB Q6H [facility] Last Admin: 12/18/16 18:02 Dose: 200 mls/hr Vancomycin/Sodium Chloride (Vancocin) 1 gm in 200 mls @ 133.333 mls/hr IVPB Q24H [facility] Stop: 12/21/16 16:01 Last Admin: 12/18/16 18:01 Dose: 133.333 mls/hr - Labs Labs: 12/18/16 06:11 12/18/16 06:11 Attending/Attestation - Attestation I have personally seen and examined this patient.: Yes I have fully participated in the care of the patient.: Yes I have reviewed all pertinent clinical information, including history, physical exam and plan: Yes Notes (Text): 12/18/16 19:25 Pt was seen and examined at bedside on 12/18/16 Agree with above note and assessment
[2016-12-18] MEDS: Vancomycin 1 gm/NS 200 ml 1 GM/200 ML BAG IVPB SCH (18:01)
--- NOTE | 2016-12-18 21:03 | OP ---
PROCEDURE DATE: 12/17/2016 PREOPERATIVE DIAGNOSIS: Left elbow cellulitis and abscess. POSTOPERATIVE DIAGNOSIS: Left elbow cellulitis and abscess. PROCEDURES DONE: 1. Incision and drainage of left elbow abscess. 2. Debridement of the left elbow wound. SURGEON: Bruno Naylor MD HERBARIUM CURATOR: Melanie Suggs, [id number] . ANESTHESIA: Local anesthesia. ESTIMATED BLOOD LOSS: Around 5 mL. DRAINS: None. PATHOLOGY: Pus was sent for a culture and sensitivity. COMPLICATIONS: None. INTRAOPERATIVE FINDINGS: The patient had a 2 x 2 cm left elbow abscess which is cellulitic. INTRAOPERATIVE STEPS: This 41-year-old male who was diagnosed with a left elbow cellulitis and abscess, and the patient was consented for incision and drainage. The elbow was prepped and draped. Local anesthesia was injected and incision and drainage was done at the bedside. The wound was debrided and the wound was packed with iodoform packing and dry sterile dressing was applied. The patient tolerated the procedure well. Count of instruments and gauze was correct. There was no apparent complication. Bruno Naylor MD cc: [id number] TT: 12/18/2016 21:02:42 dn [id number]
[2016-12-19] MEDS: Piperacillin/Tazobact 3.375 GM in Sodium Chloride 100 ML IVPB SCH ×2 (04:27→11:13)
[2016-12-19 07:04] LABS: BASO # 0.1 K/uL (0.0-0.2); BASO % 0.6 % (0.0-2.0); EOS # 0.5 K/uL (0.0-0.7); EOS % 3.6 % (0.0-4.0); HEMATOCRIT 46.3 % (35.0-51.0); LYMPH % 23.3 % (20.0-40.0); MEAN CELL VOLUME 94.9 fL (80.0-94.0); MEAN CORPUSCULAR HEMOGLOBIN 31.2 pg (27.0-31.0); MEAN CORPUSCULAR HGB CONC 32.9 g/dL (33.0-37.0); MEAN PLATELET VOLUME 8.3 fL (7.2-11.7); MONO # 1.1 K/uL (0.0-0.8); MONO % 8.4 % (0.0-10.0); RED CELL DISTRIBUTION WIDTH 14.6 % (11.5-14.5); WHITE BLOOD COUNT 12.9 K/uL (4.8-10.8)
[2016-12-19 07:21] VITALS: BP 119/78; PULSE 70; TEMP 98.2; O2SAT 100
[2016-12-19 07:33] LABS: CHLORIDE 101 mmol/L (98-107); POTASSIUM 4.1 mmol/L (3.6-5.2); SODIUM 137 mmol/L (132-148)
[2016-12-19 07:35] LABS: GFR AFRICAN-AMERICAN > 60
[2016-12-19 07:36] LABS: ALB/GLOB RATIO 1.1 (1.0-2.1); ALKALINE PHOSPHATASE 65 U/L (38-126); ALT/SGPT 18 U/L (21-72); AST/SGOT 68 U/L (17-59); BILIRUBIN,TOTAL 0.5 mg/dL (0.2-1.3); BLOOD UREA NITROGEN 14 mg/dL (9-20); CALCIUM 8.6 mg/dl (8.6-10.4); CARBON DIOXIDE 24 mmol/L (22-30); GLUCOSE,RANDOM 90 mg/dL (75-110); MAGNESIUM 2.4 mg/dL (1.6-2.3); TOTAL PROTEIN 7.4 g/dL (6.3-8.3)
--- NOTE | 2016-12-19 08:38 | CP.PCM.PN ---
Subjective - Date & Time of Evaluation Date of Evaluation: 12/19/16 Time of Evaluation: 08:35 - Subjective Subjective: Surgery: Dr. Naylor Patient doing well today. He reports full range of motion in his elbow with pain. He denies f/c/n/v. Drainage from wound reported as minimal. Objective - Vital Signs/Intake and Output Vital Signs (last 24 hours): Temp Pulse Resp BP Pulse Ox 98.2 F 70 20 119/78 100 12/19/16 07:18 12/19/16 07:18 12/19/16 07:18 12/19/16 07:18 12/19/16 07:18 Intake and Output: 12/19/16 12/19/16 06:59 18:59 Intake Total 340 Balance 340 - Medications Medications: Current Medications Acetaminophen (Tylenol 325mg Tab) 650 mg PO Q6 PRN PRN Reason: Fever >100.4 F Last Admin: 12/18/16 22:24 Dose: 650 mg Enoxaparin Sodium (Lovenox) 40 mg SC DAILY [facility] Last Admin: 12/18/16 11:00 Dose: 40 mg Famotidine (Pepcid) 20 mg PO BID [facility] Last Admin: 12/18/16 18:01 Dose: 20 mg Piperacillin Sod/Tazobactam (Sod 3.375 gm/ Sodium Chloride) 100 mls @ 200 mls/ hr IVPB Q6H [facility] Last Admin: 12/19/16 04:27 Dose: 200 mls/hr Vancomycin/Sodium Chloride (Vancocin) 1 gm in 200 mls @ 133.333 mls/hr IVPB Q24H [facility] Stop: 12/21/16 16:01 Last Admin: 12/18/16 18:01 Dose: 133.333 mls/hr - Labs Labs: 12/19/16 06:46 12/19/16 06:46 - Constitutional Appears: Non-toxic, No Acute Distress - Head Exam Head Exam: ATRAUMATIC, NORMOCEPHALIC - Eye Exam Eye Exam: EOMI, Normal appearance - ENT Exam ENT Exam: Mucous Membranes Moist - Respiratory Exam Respiratory Exam: NORMAL BREATHING PATTERN. absent: Respiratory Distress - Cardiovascular Exam Cardiovascular Exam: REGULAR RHYTHM. absent: Tachycardia - Extremities Exam Additional comments: left elbow wound with minimal pus drainage, cellulitis minimal Assessment and Plan - Assessment and Plan (Free Text) Assessment: 41 y/o male s/p I&D of left elbow abscess POD2 Plan: -cont oral abx -f/u final culture -daily dressing changes -keep wound clean and dry -f/u w/ Dr. Naylor in 1-2 weeks -d/w Dr. Naylor [facility] PGY1
--- NOTE | 2016-12-19 10:09 | CP.PCM.DIS ---
Addendum entered and electronically signed by Ilene Galindo DO 12/19/16 12:30: correction: due to micro sensitivity to culture will discharge patient on Clindamycin 300mg PO TID for 3 days Original Note: <Ilene Galindo - Last Filed: 12/19/16 12:17> Provider - Provider Date of Admission: 12/15/16 17:41 Attending physician: Kiya Velasquez DO Primary care physician: none Consults: Dr. Naylor - general surgery Dr. Clay - orthopedics Time Spent in preparation of Discharge (in minutes): 35 Diagnosis - Discharge Diagnosis (1) Cellulitis Status: Acute Comment: Augmentin PO BID x 3 days. f/u [facility]. apply for [facility] Course - Lab Results Lab Results: Micro Results 12/17/16 10:25 Elbow - Left Gram Stain - Final 12/17/16 10:25 Elbow - Left Wound Culture - Preliminary Gram Positive Cocci Most Recent Lab Values WBC 12.9 K/uL (4.8-10.8) H 12/19/16 06:46 RBC 4.88 Mil/uL (4.40-5.90) 12/19/16 06:46 Hgb 15.2 g/dL (12.0-18.0) 12/19/16 06:46 Hct 46.3 % (35.0-51.0) 12/19/16 06:46 MCV 94.9 fL (80.0-94.0) H D 12/19/16 06:46 MCH 31.2 pg (27.0-31.0) H 12/19/16 06:46 MCHC 32.9 g/dL (33.0-37.0) L 12/19/16 06:46 RDW 14.6 % (11.5-14.5) H 12/19/16 06:46 Plt Count 374 K/uL (130-400) 12/19/16 06:46 MPV 8.3 fL (7.2-11.7) 12/19/16 06:46 Neut % (Auto) 64.1 % (50.0-75.0) 12/19/16 06:46 Lymph % (Auto) 23.3 % (20.0-40.0) 12/19/16 06:46 [place] % (Auto) 8.4 % (0.0-10.0) 12/19/16 06:46 Eos % (Auto) 3.6 % (0.0-4.0) 12/19/16 06:46 Baso % (Auto) 0.6 % (0.0-2.0) 12/19/16 06:46 Neut # 8.3 K/uL (1.8-7.0) H 12/19/16 06:46 Lymph # 3.0 K/uL (1.0-4.3) 12/19/16 06:46 [place] # 1.1 K/uL (0.0-0.8) H 12/19/16 06:46 Eos # 0.5 K/uL (0.0-0.7) 12/19/16 06:46 Baso # 0.1 K/uL (0.0-0.2) 12/19/16 06:46 ESR 8 mm/hr (0-15) 12/17/16 07:13 Sodium 137 mmol/L (132-148) 12/19/16 06:46 Potassium 4.1 mmol/L (3.6-5.2) 12/19/16 06:46 Chloride 101 mmol/L (98-107) 12/19/16 06:46 Carbon Dioxide 24 mmol/L (22-30) 12/19/16 06:46 Anion Gap 15 (10-20) 12/19/16 06:46 BUN 14 mg/dL (9-20) 12/19/16 06:46 Creatinine 0.9 MG/DL (0.8-1.5) 12/19/16 06:46 Est GFR ( Amer) > 60 12/19/16 06:46 Est GFR (Non-Af Amer) > 60 12/19/16 06:46 Random Glucose 90 mg/dL (75-110) 12/19/16 06:46 Calcium 8.6 mg/dl (8.6-10.4) 12/19/16 06:46 Phosphorus 4.0 mg/dL (2.5-4.5) 12/19/16 06:46 Magnesium 2.4 mg/dL (1.6-2.3) H 12/19/16 06:46 Total Bilirubin 0.5 mg/dL (0.2-1.3) 12/19/16 06:46 AST 68 U/L (17-59) H D 12/19/16 06:46 ALT 18 U/L (21-72) L D 12/19/16 06:46 Alkaline Phosphatase 65 U/L (38-126) 12/19/16 06:46 C-React Prot High Sens 14.70 mg/L (1.00-3.00) H 12/17/16 07:13 Total Protein 7.4 g/dL (6.3-8.3) 12/19/16 06:46 Albumin 4.0 g/dL (3.5-5.0) 12/19/16 06:46 Globulin 3.5 gm/dL (2.2-3.9) 12/19/16 06:46 Albumin/Globulin Ratio 1.1 (1.0-2.1) 12/19/16 06:46 Urine Color Yellow (YELLOW) 12/15/16 17:11 Urine Clarity Hazy (Clear) 12/15/16 17:11 Urine pH 5.0 (5.0-8.0) 12/15/16 17:11 Ur Specific [place] 1.033 (1.003-1.030) H 12/15/16 17:11 Urine Protein 1+ mg/dL (NEGATIVE) H 12/15/16 17:11 Urine Glucose (UA) Normal mg/dL (Normal) 12/15/16 17:11 Urine Ketones Trace mg/dL (NEGATIVE) 12/15/16 17:11 Urine Blood Negative (NEGATIVE) 12/15/16 17:11 Urine Nitrate Negative (NEGATIVE) 12/15/16 17:11 Urine Bilirubin Negative (NEGATIVE) 12/15/16 17:11 Urine Urobilinogen Normal mg/dL (0.2-1.0) 12/15/16 17:11 Ur Leukocyte Esterase Neg Compa/uL (Negative) 12/15/16 17:11 Urine WBC (Auto) < 1 /hpf (0-5) 12/15/16 17:11 Urine RBC (Auto) 3 /hpf (0-3) 12/15/16 17:11 Ur Squamous Epith Cells < 1 /hpf (0-5) 12/15/16 17:11 Urine Bacteria Rare (<OCC) 12/15/16 17:11 Lyme Disease IgM Ab Negative (NEGATIVE) 12/15/16 15:51 - Hospital Course Hospital Course: On admission: 41 year old male with no past medical history presents to the ED today complaining of L elbow pain. He states he noticed a "pimple" on his left elbow on Sunday. He denies trauma to the elbow or bug bites. He reports that on Sunday night he squeezed the "pimple" and pus came out. He states that he has pain in the elbow and it was very red and swollen down his arm but that this has improved since then. He reports having full ROM in his elbow. He stated that he took some of his mother's percocet to relived the pain and was applying hot compresses to the area. He came in today because it was not better. He denies pain in any other area of joint. He denies fever/chills or any other complaint. During hospital stay: Patient was given Clindamycin then switch to Vanc and Zosyn abx Iv. He had an elevated white count. ESR was normal CRP was elevated. Lyme was negative. Patient was afebrile during his stay. MRI was positive for developing abscess. He had an I/D done at bedside on 12/18. Packing was used then removed the next day. Cellulitis improved. Abscess culture revealed Staph Aureus. Patient stable for discharge home. Patient is to follow up in the [facility] within 1-2 weeks of discharge for post hospital care. He is also follow up with Dr. To within 1-2 weeks of discharge in the clinic for wound care follow up. He is to take Augmentin by mouth twice a day for 3 more days. Patient is to return to the ED if symptoms return. All instructions explained to the patient and he agrees. Discharge Exam - Head Exam Head Exam: ATRAUMATIC, NORMOCEPHALIC - Eye Exam Eye Exam: EOMI, Normal appearance, PERRL Pupil Exam: NORMAL ACCOMODATION - ENT Exam ENT Exam: Mucous Membranes Moist - Respiratory Exam Respiratory Exam: NORMAL BREATHING PATTERN. absent: Accessory Muscle Use, Respiratory Distress - Cardiovascular Exam Cardiovascular Exam: REGULAR RHYTHM, +S1, +S2 - GI/Abdominal Exam GI & Abdominal Exam: Normal Bowel Sounds, Soft. absent: Distended, Firm, Guarding, Tenderness - Extremities Exam Extremities exam: normal inspection Additional comments: L elbow wound, dressing c/d/i packign removed, erythema and edema resolved. FULL ROM, sensation in tact, no tenderness - Back Exam Back exam: NORMAL INSPECTION. absent: CVA tenderness (R), paraspinal tenderness - Neurological Exam Neurological exam: Alert, Normal Gait, Oriented x3 - Psychiatric Exam Psychiatric exam: Anxious, Normal Mood - Skin Skin Exam: Dry, Intact, Normal Color, Warm Discharge Plan - Discharge Medications Prescriptions: Clindamycin [Cleocin] 0 mg PO TID #9 cap - Follow Up Plan Condition: STABLE Disposition: HOME/ ROUTINE Instructions: Clindamycin (By mouth), Cellulitis (DC), Acute Wound Care (DC), Debridement (DC) Additional Instructions: Patient stable for discharge home. Patient is to follow up in the [facility] within 1-2 weeks of discharge for post hospital care. He is also follow up with Dr. To within 1-2 weeks of discharge in the clinic for wound care follow up. He is to take Clindamycin 300mg by mouth three times a day for 3 more days. Patient is to return to the ED if symptoms return. All instructions explained to the patient and he agrees. Referrals: [facility] at [facility] [Outside] Bruno Naylor MD [Staff Provider] - <Kofi Galvan H - Last Filed: 12/19/16 15:35> Provider - Provider Date of Admission: 12/15/16 17:41 Attending physician: Kiya Velasquez DO Hospital Course - Lab Results Lab Results: Micro Results 12/17/16 10:25 Elbow - Left Gram Stain - Final 12/17/16 10:25 Elbow - Left Wound Culture - Final Staphylococcus Aureus Most Recent Lab Values WBC 12.9 K/uL (4.8-10.8) H 12/19/16 06:46 RBC 4.88 Mil/uL (4.40-5.90) 12/19/16 06:46 Hgb 15.2 g/dL (12.0-18.0) 12/19/16 06:46 Hct 46.3 % (35.0-51.0) 12/19/16 06:46 MCV 94.9 fL (80.0-94.0) H D 12/19/16 06:46 MCH 31.2 pg (27.0-31.0) H 12/19/16 06:46 MCHC 32.9 g/dL (33.0-37.0) L 12/19/16 06:46 RDW 14.6 % (11.5-14.5) H 12/19/16 06:46 Plt Count 374 K/uL (130-400) 12/19/16 06:46 MPV 8.3 fL (7.2-11.7) 12/19/16 06:46 Neut % (Auto) 64.1 % (50.0-75.0) 12/19/16 06:46 Lymph % (Auto) 23.3 % (20.0-40.0) 12/19/16 06:46 [place] % (Auto) 8.4 % (0.0-10.0) 12/19/16 06:46 Eos % (Auto) 3.6 % (0.0-4.0) 12/19/16 06:46 Baso % (Auto) 0.6 % (0.0-2.0) 12/19/16 06:46 Neut # 8.3 K/uL (1.8-7.0) H 12/19/16 06:46 Lymph # 3.0 K/uL (1.0-4.3) 12/19/16 06:46 [place] # 1.1 K/uL (0.0-0.8) H 12/19/16 06:46 Eos # 0.5 K/uL (0.0-0.7) 12/19/16 06:46 Baso # 0.1 K/uL (0.0-0.2) 12/19/16 06:46 ESR 8 mm/hr (0-15) 12/17/16 07:13 Sodium 137 mmol/L (132-148) 12/19/16 06:46 Potassium 4.1 mmol/L (3.6-5.2) 12/19/16 06:46 Chloride 101 mmol/L (98-107) 12/19/16 06:46 Carbon Dioxide 24 mmol/L (22-30) 12/19/16 06:46 Anion Gap 15 (10-20) 12/19/16 06:46 BUN 14 mg/dL (9-20) 12/19/16 06:46 Creatinine 0.9 MG/DL (0.8-1.5) 12/19/16 06:46 Est GFR ( Amer) > 60 12/19/16 06:46 Est GFR (Non-Af Amer) > 60 12/19/16 06:46 Random Glucose 90 mg/dL (75-110) 12/19/16 06:46 Calcium 8.6 mg/dl (8.6-10.4) 12/19/16 06:46 Phosphorus 4.0 mg/dL (2.5-4.5) 12/19/16 06:46 Magnesium 2.4 mg/dL (1.6-2.3) H 12/19/16 06:46 Total Bilirubin 0.5 mg/dL (0.2-1.3) 12/19/16 06:46 AST 68 U/L (17-59) H D 12/19/16 06:46 ALT 18 U/L (21-72) L D 12/19/16 06:46 Alkaline Phosphatase 65 U/L (38-126) 12/19/16 06:46 C-React Prot High Sens 14.70 mg/L (1.00-3.00) H 12/17/16 07:13 Total Protein 7.4 g/dL (6.3-8.3) 12/19/16 06:46 Albumin 4.0 g/dL (3.5-5.0) 12/19/16 06:46 Globulin 3.5 gm/dL (2.2-3.9) 12/19/16 06:46 Albumin/Globulin Ratio 1.1 (1.0-2.1) 12/19/16 06:46 Urine Color Yellow (YELLOW) 12/15/16 17:11 Urine Clarity Hazy (Clear) 12/15/16 17:11 Urine pH 5.0 (5.0-8.0) 12/15/16 17:11 Ur Specific [place] 1.033 (1.003-1.030) H 12/15/16 17:11 Urine Protein 1+ mg/dL (NEGATIVE) H 12/15/16 17:11 Urine Glucose (UA) Normal mg/dL (Normal) 12/15/16 17:11 Urine Ketones Trace mg/dL (NEGATIVE) 12/15/16 17:11 Urine Blood Negative (NEGATIVE) 12/15/16 17:11 Urine Nitrate Negative (NEGATIVE) 12/15/16 17:11 Urine Bilirubin Negative (NEGATIVE) 12/15/16 17:11 Urine Urobilinogen Normal mg/dL (0.2-1.0) 12/15/16 17:11 Ur Leukocyte Esterase Neg Compa/uL (Negative) 12/15/16 17:11 Urine WBC (Auto) < 1 /hpf (0-5) 12/15/16 17:11 Urine RBC (Auto) 3 /hpf (0-3) 12/15/16 17:11 Ur Squamous Epith Cells < 1 /hpf (0-5) 12/15/16 17:11 Urine Bacteria Rare (<OCC) 12/15/16 17:11 Lyme Disease IgM Ab Negative (NEGATIVE) 12/15/16 15:51 Attending/Attestation - Attestation I have personally seen and examined this patient.: Yes I have fully participated in the care of the patient.: Yes I have reviewed all pertinent clinical information, including history, physical exam and plan: Yes Notes (Text): 12/19/16 15:35 Medical Attending: Patient was seen and examined by me. Agree with the above note by the resident. The patient was feeling much better. Will be DC today with additional days of PO abx. thank you Kofi Galvan
[2016-12-19] MEDS: Enoxaparin 40 mg Syringe SC SCH (11:13)
--- NOTE | 2016-12-19 12:13 | MRI ---
MRI left elbow History: Cellulitis. Evaluate for osteomyelitis. Comparison: None available. Technique: Multi-echo multiplanar sequences were performed through the left elbow without the use of intravenous contrast. Findings: Prominent reticulation and edema seen within the posterior and medial subcutaneous soft tissues consistent with the known cellulitis. Within the posterior soft tissues, at or near the olecranon bursa, there is a more confluent area of signal abnormality measuring 2.5 x 0.7 x 2.3 centimeters demonstrating heterogeneously decreased T1 signal, heterogeneously increased STIR signal, and heterogeneously increased T2 signal concerning for developing phlegmonous change and or developing abscess formation. Clinical correlation and or correlation with contrast-enhanced MRI may be helpful if clinically indicated. No significant signal abnormality within the adjacent osseous structures to suggest acute osteomyelitis. No significant elbow joint effusion. Biceps and brachialis tendon insertions appear preserved. Mild insertional tendinopathy of the triceps tendon on the posterior olecranon. Common extensor tendon is preserved. Mild insertional tendinopathy of the common flexor tendon. Radial collateral ligament is preserved. Lateral ulnar collateral ligament is preserved. Mild increased signal seen within the proximal attachment of the ulnar collateral ligament suggestive for a low grade sprain. Impression: 1. Prominent reticulation and edema seen within the posterior and medial subcutaneous soft tissues consistent with the known cellulitis. Within the posterior soft tissues, at or near the olecranon bursa, there is a more confluent area of signal abnormality measuring 2.5 x 0.7 x 2.3 centimeters demonstrating heterogeneously decreased T1 signal, heterogeneously increased STIR signal, and heterogeneously increased T2 signal concerning for developing phlegmonous change and or developing abscess formation. Clinical correlation and or correlation with contrast-enhanced MRI may be helpful if clinically indicated. 2. Mild insertional tendinopathy of the triceps tendon on the posterior olecranon. 3. Mild insertional tendinopathy of the common flexor tendon. 4. Mild increased signal seen within the proximal attachment of the ulnar collateral ligament suggestive for a low grade sprain. These findings were preliminarily reported at 4:41 p.m. on 12/10/[address] Beena Malin from [facility].
[2016-12-19 16:23] LABS: 18 KD (IGG) BAND Nonreactive; 23 KD (IGG) BAND Nonreactive; 23 KD (IGM) BAND Nonreactive; 28 KD (IGG) BAND Nonreactive; 30 KD (IGG) BAND Nonreactive; 39 KD (IGG) BAND Nonreactive; 39 KD (IGM) BAND Nonreactive; 41 KD (IGG) BAND Nonreactive; 41 KD (IGM) BAND Reactive; 45 KD (IGG) BAND Reactive; 58 KD (IGG) BAND Nonreactive; 66 KD (IGG) BAND Nonreactive; 93 KD (IGG) BAND Nonreactive; LYME DISEASE INTERP (IGG) Negative (Negative)
== END 2016-12-19 12:30 | disposition home or self-care (01) | DRG 278 ==
LOC: C.ER 14:53 → MERGE 17:41 → C.3T 17:41 → UNDODISIN 12-16 00:38 → C.3T 12-16 04:22
PROVIDERS: ADMIT Hospitalist; ATTEND Hospitalist
PROC: 0H9CXZZ Drainage of Left Upper Arm Skin, External Approach (ICD-10-PCS; principal; 2016-12-18)
PROC: 0HDCXZZ Extraction of Left Upper Arm Skin, External Approach (ICD-10-PCS; 2016-12-18)
DX: L03.114 Cellulitis of left upper limb (principal); A49.01 Methicillin susceptible Staphylococcus aureus infection, unspecified site

== ENCOUNTER 2018-11-11 00:02 | Emergency (ER) | payer SELFPAY ==
[2018-11-11 00:36] LABS: URINE BILIRUBIN NEGATIVE (NEGATIVE); URINE BLOOD NEGATIVE (NEGATIVE); URINE CLARITY Clear (Clear); URINE COLOR Straw (YELLOW); URINE GLUCOSE (UA) NORMAL (Normal); URINE LEUKOCYTE ESTERASE NEG Leu/uL (Negative); URINE PROTEIN NEGATIVE (NEGATIVE); URINE UROBILINOGEN NORMAL mg/dL (0.2-1.0)
[2018-11-11 00:40] LABS: BASO # 0.1 K/uL (0.0-0.2); BASO % 1.2 % (0.0-2.0); EOS # 0.4 K/uL (0.0-0.7); EOS % 3.8 % (0.0-4.0); HEMOGLOBIN 14.2 g/dL (12.0-18.0); LYMPH # 3.4 K/uL (1.0-4.3); LYMPH % 30.7 % (20.0-40.0); MEAN CELL VOLUME 95.3 fL (80.0-94.0); MEAN CORPUSCULAR HEMOGLOBIN 31.2 pg (27.0-31.0); MEAN CORPUSCULAR HGB CONC 32.7 g/dL (33.0-37.0); MEAN PLATELET VOLUME 8.1 fL (7.2-11.7); MONO % 8.7 % (0.0-10.0); NEUT # 6.2 K/uL (1.8-7.0); NEUT % 55.6 % (50.0-75.0); RBC 4.57 Mil/uL (4.40-5.90); RED CELL DISTRIBUTION WIDTH 14.8 % (11.5-14.5)
[2018-11-11 00:50] LABS: BARBITURATES, UR NEGATIVE (NEGATIVE); BENZODIAZEPINES, UR NEGATIVE (NEGATIVE); OPIATES, UR NEGATIVE (NEGATIVE); PHENCYCLIDINE, UR NEGATIVE (NEGATIVE)
[2018-11-11 00:58] LABS: ALB/GLOB RATIO 1.4 (1.0-2.1); ALBUMIN 4.7 g/dL (3.5-5.0); ALT/SGPT 32 U/L (21-72); AST/SGOT 38 U/L (17-59); BLOOD UREA NITROGEN 10 mg/dL (9-20); CALCIUM 8.9 mg/dl (8.6-10.4); GFR NON-AFRICAN AMERICAN > 60
--- NOTE | 2018-11-11 02:54 | C.PDOC ---
History Of Present Illness Patient brought in by EMS for intoxication, was found on the street. Patient appears intoxicated and is uncooperative, not giving staff any information including his name, birthdate, or how much he drank tonight. He denies any medic al complaints. Time Seen by Provider: 11/11/18 01:37 Chief Complaint (Nursing): Substance Abuse History Per: Patient History/Exam Limitations: intoxication Past Medical History Reviewed: Historical Data, Nursing Documentation, Vital Signs MIKE Report Viewed: Yes Family History: States: Unknown Family Hx - Social History Hx Alcohol Use: Yes Hx Substance Use: (unknown) - Immunization History Hx Tetanus Toxoid Vaccination: (unknown) Hx Influenza Vaccination: (unknown) Hx Pneumococcal Vaccination: (unknown) Review Of Systems Review Of Systems: ROS cannot be obtained secondary to pt's inabilty to answer questions. Physical Exam - Physical Exam Appears: Agitated, Other (intoxicated) Skin: Normal Color, Warm, Dry Head: Atraumatic Oral Mucosa: Moist Cardiovascular: Rhythm Regular Respiratory: Normal Breath Sounds Gastrointestinal/Abdominal: Normal Exam Extremity: Normal ROM Neurological/Psych: Other (intoxicated) ED Course And Treatment - Laboratory Results Result Diagrams: 11/11/18 00:36 11/11/18 00:36 Lab Results: Total Bilirubin 0.3 mg/dL (0.2-1.3) 11/11/18 00:36 AST 38 U/L (17-59) 11/11/18 00:36 ALT 32 U/L (21-72) 11/11/18 00:36 Alkaline Phosphatase 90 U/L (38-126) 11/11/18 00:36 Total Protein 8.2 g/dL (6.3-8.3) 11/11/18 00:36 Albumin 4.7 g/dL (3.5-5.0) 11/11/18 00:36 Globulin 3.5 gm/dL (2.2-3.9) 11/11/18 00:36 Albumin/Globulin Ratio 1.4 (1.0-2.1) 11/11/18 00:36 Urine Color Straw (YELLOW) 11/11/18 00:31 Urine Clarity Clear (Clear) 11/11/18 00:31 Urine pH 6.0 (5.0-8.0) 11/11/18 00:31 Ur Specific [place] 1.001 (1.003-1.030) L 11/11/18 00:31 Urine Protein Negative mg/dL (NEGATIVE) 11/11/18 00:31 Urine Glucose (UA) Normal mg/dL (Normal) 11/11/18 00:31 Urine Ketones Negative mg/dL (NEGATIVE) 11/11/18 00:31 Urine Blood Negative (NEGATIVE) 11/11/18 00:31 Urine Nitrate Negative (NEGATIVE) 11/11/18 00:31 Urine Bilirubin Negative (NEGATIVE) 11/11/18 00:31 Urine Urobilinogen Normal mg/dL (0.2-1.0) 11/11/18 00:31 Ur Leukocyte Esterase Neg Compa/uL (Negative) 11/11/18 00: Urine RBC (Auto) < 1 /hpf (0-3) 11/11/18 00:31 Medical Decision Making Medical Decision Making: Patient required physical restraints upon arrival as he was uncooperative and swinging at staff. He eventually calmed down and went to sleep. Patient became progressively more awake, alert, and oriented. Upon discharge he was able to get dressed and ambulate without any difficulty. Stable for discharge. Disposition - Disposition Disposition: HOME/ ROUTINE Disposition Time: 06:18 Condition: STABLE Additional Instructions: LAUREANO MONTOYA, thank you for letting us take care of you today. Your provider was Dee Dee Valle MD and you were treated for SUBSTANCE ABUSE. The emergency medical care you received today was directed at your acute symptoms. If you were prescribed any medication, please fill it and take as directed. It may take several days for your symptoms to resolve. Return to the Emergency Department if your symptoms worsen, do not improve, or if you have any other problems. Please contact your doctor or call one of the physicians/clinics you have been referred to that are listed on the Patient Visit Information form that is included in your discharge packet. Bring any paperwork you were given at discharge with you along with any medications you are taking to your follow up visit. Our treatment cannot replace ongoing medical care by a primary care provider outside of the emergency department. Thank you for allowing the [facility] team to be part of your care today. If you had an X-Ray or CT scan: A Radiologist will review the ED reading if any change in treatment is needed we will contact you. If you had a blood, urine, or wound culture: It will take several days for the results, if any change in treatment is needed we will contact you. If you had an STI test: It will take 48 hours for the results. Please call after 1 week if you have not heard back. Instructions: Alcohol Abuse and Alcoholism (DC) Forms: [employer] ([place]ux[place]ish) - Clinical Impression Clinical Impression: Alcohol intoxication
[2018-11-11 06:17] VITALS: BP 131/69; PULSE 78; RESP 20; TEMP 97.8; O2SAT 99
== END 2018-11-11 06:18 | disposition home or self-care (01) ==
LOC: MERGE 00:02 → EDBD 00:02 → C.ER 00:02
DX: F10.129 Alcohol abuse with intoxication, unspecified (principal); Y90.8 Blood alcohol level of 240 mg/100 ml or more
CPT/HCPCS: 80053; 81001; 82948; 85025; 99285; G0480